=== PATIENT | male | born 1990 | race African-American/Black ===

== ENCOUNTER 2018-11-16 16:26 | Emergency (ER) | payer MEDICAID, OTHER ==
[~2018-11-16] VITALS: Ht 180.3 cm; Wt 102.0 kg
[~2018-11-16 16:26] MED LIST: CLIN150C8 PO
[2018-11-16 16:34] VITALS: BP 135/79
[2018-11-16] MEDS ORDERED: CEPH-571 PO (16:51)
== END 2018-11-16 17:16 | disposition home or self-care (01) ==
LOC: ER 16:27
DX: L03.114 Cellulitis of left upper limb (principal); F10.99 Alcohol use, unspecified with unspecified alcohol-induced disorder; Z79.899 Other long term (current) drug therapy; Y90.9 Presence of alcohol in blood, level not specified
CPT/HCPCS: 99283

== ENCOUNTER 2023-07-12 23:31 | Emergency (ER) | payer MEDICAID ==
[~2023-07-12] VITALS: Ht 180.3 cm; Wt 105.0 kg
[~2023-07-12 23:31] MED LIST changes: +CEPH-571 PO; +CLIN-214 PO; -CLIN150C8 PO
[2023-07-12 23:34] VITALS: BP 165/107; PULSE 84; TEMP 98.2
[2023-07-13] MEDS: predniSONE 20 mg tablet PO ONE (00:30)
[2023-07-13] MEDS: clindamycin 150mg capsule PO ONE (00:30)
[2023-07-13] MEDS: oxyCODONE/APAP 10/325mg tablet PO ONE (00:30)
[2023-07-13] MEDS ORDERED: IBUP-1984 PO (01:02)
[2023-07-13] MEDS ORDERED: CLIN300C3 PO (01:02)
[2023-07-13] MEDS ORDERED: SULF1TAB49 PO (01:02)
[2023-07-13] MEDS: ketorolac tromethamine 15mg/ml inj. IM ONE (01:47)
[2023-07-13 02:20] VITALS: RESP 16; O2SAT 99
== END 2023-07-13 02:21 | disposition home or self-care (01) ==
LOC: ER 23:31
DX: K04.7 Periapical abscess without sinus (principal); Z79.2 Long term (current) use of antibiotics
CPT/HCPCS: 96372; 99284; J1885; J7512

== ENCOUNTER 2023-07-17 03:57 | Emergency (ER) | payer MEDICAID ==
[~2023-07-17] VITALS: Ht 180.3 cm; Wt 104.5 kg
[~2023-07-17 03:57] MED LIST changes: +CLIN300C3 PO; +IBUP-1984 PO; +SULF1TAB49 PO
[2023-07-17] MEDS: oxymetazoline 15 ML nasal spray NS STA (06:56)
[2023-07-17] MEDS: pseudoephedrine 30mg tablet PO STA (06:56)
[2023-07-17 07:02] VITALS: BP 145/86; PULSE 92; RESP 16; O2SAT 98
== END 2023-07-17 07:09 | disposition home or self-care (01) ==
LOC: ER 03:58
DX: R09.81 Nasal congestion (principal)
CPT/HCPCS: 99282; 99283

== ENCOUNTER 2023-08-12 01:56 | Emergency (ER) | payer MEDICAID ==
[~2023-08-12] VITALS: Ht 180.3 cm; Wt 105.0 kg
[~2023-08-12 01:56] MED LIST changes: -CLIN300C3 PO; -SULF1TAB49 PO
[2023-08-12 02:17] VITALS: TEMP 98.1
[2023-08-12] MEDS ORDERED: AMOX500C2 PO (02:28)
[2023-08-12] MEDS ORDERED: HYDR-3965 PO (02:29)
[2023-08-12] MEDS: ondansetron 4mg rapidly disintigrating tab PO ONE (02:44)
[2023-08-12] MEDS: amoxicillin 250mg capsule PO ONE (02:44)
[2023-08-12] MEDS: ketorolac tromethamine 15mg/ml inj. IM ONE (02:48)
[2023-08-12 02:53] VITALS: BP 132/71; PULSE 88; RESP 16; O2SAT 98
== END 2023-08-12 02:55 | disposition home or self-care (01) ==
LOC: ER 01:57
DX: K08.89 Other specified disorders of teeth and supporting structures (principal)
CPT/HCPCS: 96372; 99283; J1885